=== PATIENT | female | born 1955 | race Caucasian/White ===

== ENCOUNTER 2023-02-02 14:05 | Inpatient (IN) | payer OTHER, MEDICARE ==
[2023-02-01 20:00] VITALS: PULSE 104; RESP 18; O2SAT 99
[~2023-02-02] VITALS: Ht 162.6 cm; Wt 109.9 kg
[2023-02-02 14:58] VITALS: PULSE 110; RESP 19; O2SAT 94
[2023-02-02] MEDS ORDERED: ONDANSETRON HCL 4 MG/2 ML VIAL IV ONE ×2 (15:00→19:00)
[2023-02-02] MEDS ORDERED: SODIUM CHLORIDE 0.9% 500 ML IV ONE (15:00)
[2023-02-02 15:07] LABS: Alanine Aminotransferase 16 U/L (7-40); Albumin 2.9 g/dL (3.2-4.8); Alkaline Phosphatase 77 U/L (46-116); Anion Gap 6 (5-15); Aspartate Aminotransferase 20 U/L (13-40); BUN/Creatinine Ratio 16.4 (10.0-20.0); Blood Urea Nitrogen 19 mg/dL (9-23); Calcium 7.9 mg/dL (8.7-10.4); Carbon Dioxide 26 mmol/L (20-30); Chloride 108 mmol/L (98-107); Glucose 163 mg/dL (74-106); Sodium 140 mmol/L (136-145)
[2023-02-02 15:08] LABS: Bilirubin, Total 0.8 mg/dL (0.2-1.0); Total Protein 5.4 g/dL (5.7-8.2)
[2023-02-02 15:44] LABS: Basophils # (auto) 0 10 ^3/uL (0-0.2); Eosinophils # (auto) 0 10 ^3/uL (0-0.8); Hemoglobin 7.9 g/dL (12.2-16.2); Lymphocytes # (auto) 0.3 10 ^3/uL (0.4-5.4); Mean Corpuscular Hgb Conc. 34.4 g/dL (32.0-36.0); Monocytes # (auto) 0 10 ^3/uL (0-1.3); Neutrophils # (auto) 0.1 10 ^3/uL (1.6-8.6); Red Blood Cells 2.53 10^6/uL (4.0-5.20)
[2023-02-02 15:46] LABS: Basophils % (auto) 0.1 % (0.0-2.0); Eosinophils % (auto) 6.3 % (0.0-7.0); Lymphocytes % (auto) 68.1 % (10.0-50.0); Mean Corpuscular Hemoglobin 31.1 pg (28.0-32.0); Mean Corpuscular Volume 90.7 fL (80.0-100.0); Monocytes % (auto) 1.6 % (0.0-12.0); Neutrophils % (auto) 23.9 % (37.0-80.0); Nucleated Red Blood Cells % 0.6 %; Red Cell Distribution Width 14.3 % (11.8-14.3)
[2023-02-02 15:55] LABS: Urine Bacteria NONE SEEN /hpf (None Seen); Urine Blood Negative /uL (Negative); Urine Clarity Clear (Clear); Urine Color Colorless (Yellow); Urine Mucus FEW (None Seen); Urine Protein, UAD Negative (Negative); Urine Specific Gravity 1.008 (1.001-1.035); Urine Urobilinogen Normal (Negative); Urine WBC 5 /hpf (0 - 5); Urine pH 5.5 (5.0-8.0)
[2023-02-02] MEDS ORDERED: cefTRIAXone 1GM/50ML D5W 50 ML IV ONE (16:15)
[2023-02-02] MEDS: POTASSIUM CHL 20 Meq TABLET PO ONE ×2 (16:29→16:34)
[2023-02-02 16:35] LABS: White Blood Cell 0.5 10^3/uL (4.4-10.8)
[2023-02-02 16:36] LABS: Alanine Aminotransferase 15 U/L (7-40); Albumin 2.8 g/dL (3.2-4.8); Alkaline Phosphatase 76 U/L (46-116); Anion Gap 5 (5-15); Aspartate Aminotransferase 20 U/L (13-40); BUN/Creatinine Ratio 15.2 (10.0-20.0); Blood Urea Nitrogen 17 mg/dL (9-23); Calcium 7.8 mg/dL (8.7-10.4); Carbon Dioxide 27 mmol/L (20-30); Chloride 109 mmol/L (98-107); Glucose 128 mg/dL (74-106); Lipase 60 U/L (12-53); Magnesium 1.4 mg/dL (1.6-2.6); Potassium 3.1 mmol/L (3.5-5.1); Sodium 141 mmol/L (136-145)
[2023-02-02 16:37] LABS: Bilirubin, Total 0.8 mg/dL (0.2-1.0); Total Protein 5.3 g/dL (5.7-8.2)
[2023-02-02 16:38] LABS: Lactic Acid w/Reflex 2.1 mmol/L (0.4-2.0)
[2023-02-02] MEDS ORDERED: VANCOMYCIN 1GM/250ML 250 ML IV ONE (17:15)
[2023-02-02 17:49] LABS: INR 1.1 (0.9-1.15); Partial Thromboplastin Time 29.2 SEC (24.5-34.5); Prothrombin Time 11.5 sec (9.3-11.8)
[2023-02-02] MEDS ORDERED: MORPHINE SULFATE 4 MG/ML SYR/VIAL IV ONE (19:00)
[2023-02-02 19:50] VITALS: PULSE 119; RESP 25; O2SAT 90
[2023-02-02] MEDS ORDERED: ACETAMINOPHEN 650 MG RECT SUPP PR ONE (20:30)
[2023-02-02] MEDS ORDERED: VANCOMYCIN PER PHARMACY 0 MG IV SCH (21:45)
[2023-02-02] MEDS ORDERED: SOD CHL 0.45% 1,000 ML IV ONE (21:45)
[2023-02-02] MEDS ORDERED: NITROGLYCERIN 0.4 MG SL TAB SL PRN (21:45)
[2023-02-02] MEDS: CALCIUM GLUC 1,000mg/50ml-NS 50 ML IV SCH ×2 (22:32→23:08)
[2023-02-02] MEDS: ONDANSETRON HCL 4 MG/2 ML VIAL IV PRN (23:33)
[2023-02-02] MEDS: PIPERACILLIN-TAZOB 3.375GM 100 ML IV SCH (23:50)
[2023-02-03] VITALS (11 sets, daily range): BP systolic 91–137; BP diastolic 29–61; PULSE 95–116; RESP 14–22; TEMP 97.6–101; O2SAT 91–100
[2023-02-03 03:07] LABS: Basophils # (auto) 0 10 ^3/uL (0-0.2); Basophils % (auto) 0.1 % (0.0-2.0); Eosinophils # (auto) 0 10 ^3/uL (0-0.8); Hemoglobin 7.2 g/dL (12.2-16.2); Lymphocytes # (auto) 0.3 10 ^3/uL (0.4-5.4); Monocytes # (auto) 0 10 ^3/uL (0-1.3); Neutrophils # (auto) 0.1 10 ^3/uL (1.6-8.6)
[2023-02-03 03:09] LABS: Eosinophils % (auto) 1.2 % (0.0-7.0); Hematocrit 20.9 % (36.0-46.0); Mean Corpuscular Hemoglobin 31.6 pg (28.0-32.0); Mean Corpuscular Hgb Conc. 34.4 g/dL (32.0-36.0); Mean Corpuscular Volume 91.7 fL (80.0-100.0); Neutrophils % (auto) 35.4 % (37.0-80.0); Nucleated Red Blood Cells % 0.8 %; Red Blood Cells 2.28 10^6/uL (4.0-5.20); Red Cell Distribution Width 14.5 % (11.8-14.3)
[2023-02-03 03:47] LABS: Lymphocytes % (auto) 60.3 % (10.0-50.0)
[2023-02-03 03:57] LABS: White Blood Cell 0.4 10^3/uL (4.4-10.8)
[2023-02-03 03:59] LABS: Platelet Estimate Markedly Decreased
[2023-02-03 05:08] LABS: Alanine Aminotransferase 13 U/L (7-40); Albumin 2.6 g/dL (3.2-4.8); Alkaline Phosphatase 64 U/L (46-116); Anion Gap 8 (5-15); Aspartate Aminotransferase 13 U/L (13-40); BUN/Creatinine Ratio 17.5 (10.0-20.0); Blood Urea Nitrogen 22 mg/dL (9-23); Calcium 7.7 mg/dL (8.7-10.4); Carbon Dioxide 25 mmol/L (20-30); Chloride 107 mmol/L (98-107); Glucose 148 mg/dL (74-106); Potassium 3.3 mmol/L (3.5-5.1); Sodium 140 mmol/L (136-145)
[2023-02-03 05:09] LABS: Bilirubin, Total 0.9 mg/dL (0.2-1.0); Total Protein 4.9 g/dL (5.7-8.2)
[2023-02-03] MEDS: PIPERACILLIN-TAZOB 3.375GM 100 ML IV SCH ×2 (06:49→14:12)
[2023-02-03] MEDS: MORPHINE SULFATE INJ 2 MG/ml SYRG IV PRN ×3 (08:13→19:14)
[2023-02-03] MEDS: ONDANSETRON HCL 4 MG/2 ML VIAL IV PRN ×3 (08:13→20:40)
[2023-02-03] MEDS ORDERED: ACETAMINOPHEN 500 MG TAB PO PRN (10:15)
[2023-02-03] MEDS ORDERED: HYDROcodone-ACET 5/325MG TAB PO PRN (15:15)
[2023-02-03] MEDS: metroNIDAZOLE 500MG/100ML 100 ML IV SCH (19:15)
[2023-02-03] MEDS: SOD CHL 0.45% WITH 20MEQ KCL 1,000 ML IV SCH (20:30)
[2023-02-04] VITALS (13 sets, daily range): BP systolic 109–116; BP diastolic 45–68; PULSE 61–124; RESP 16–21; TEMP 97.5–99.3; O2SAT 93–100
[2023-02-04] MEDS: SOD CHL 0.45% WITH 20MEQ KCL 1,000 ML IV SCH
[2023-02-04] MEDS: metroNIDAZOLE 500MG/100ML 100 ML IV SCH ×4 (00:10→22:41)
[2023-02-04] MEDS: MORPHINE SULFATE INJ 2 MG/ml SYRG IV PRN ×5 (00:11→20:20)
[2023-02-04] MEDS: ONDANSETRON HCL 4 MG/2 ML VIAL IV PRN ×2 (05:18→09:22)
[2023-02-04 07:06] LABS: Basophils # (auto) 0 10 ^3/uL (0-0.2); Eosinophils # (auto) 0 10 ^3/uL (0-0.8); Lymphocytes # (auto) 0.2 10 ^3/uL (0.4-5.4); Mean Corpuscular Volume 89.7 fL (80.0-100.0); Monocytes # (auto) 0 10 ^3/uL (0-1.3); Neutrophils # (auto) 0.2 10 ^3/uL (1.6-8.6)
[2023-02-04 07:09] LABS: Basophils % (auto) 0.1 % (0.0-2.0); Eosinophils % (auto) 2.1 % (0.0-7.0); Hematocrit 18.4 % (36.0-46.0); Mean Corpuscular Hemoglobin 31.6 pg (28.0-32.0); Mean Corpuscular Hgb Conc. 35.2 g/dL (32.0-36.0); Monocytes % (auto) 5.7 % (0.0-12.0); Neutrophils % (auto) 47.1 % (37.0-80.0); Nucleated Red Blood Cells % 2.6 %; Red Blood Cells 2.05 10^6/uL (4.0-5.20)
[2023-02-04 07:26] LABS: Hemoglobin 6.5 g/dL (12.2-16.2); White Blood Cell 0.4 10^3/uL (4.4-10.8)
[2023-02-04 07:43] LABS: Alanine Aminotransferase 11 U/L (7-40); Albumin 2.5 g/dL (3.2-4.8); Alkaline Phosphatase 57 U/L (46-116); Anion Gap 8 (5-15); Aspartate Aminotransferase 13 U/L (13-40); BUN/Creatinine Ratio 14.9 (10.0-20.0); Blood Urea Nitrogen 18 mg/dL (9-23); Calcium 7.6 mg/dL (8.5-10.1); Carbon Dioxide 28 mmol/L (20-30); Chloride 107 mmol/L (98-107); Glucose 143 mg/dL (74-106); Sodium 143 mmol/L (136-145)
[2023-02-04 07:44] LABS: Bilirubin, Total 0.7 mg/dL (0.2-1.0); Total Protein 4.8 g/dL (5.7-8.2)
[2023-02-04 07:51] LABS: Potassium 2.8 mmol/L (3.5-5.1)
[2023-02-04] MEDS ORDERED: FILGRASTIM (TBO) 300 MCG/0.5 ML SYRG SC ONE (08:00)
[2023-02-04 08:26] LABS: Platelet Estimate Decreased
[2023-02-04] MEDS: cefTRIAXone 1GM/50ML D5W 50 ML IV SCH (09:22)
[2023-02-04] MEDS ORDERED: LIDOCAINE VISCOUS 2% 15ML UD MT PRN (09:45)
[2023-02-04] MEDS ORDERED: POTASSIUM CHLORIDE 60 MEQ, LIDOCAINE 1% (LOCAL ANESTH.) 6 ML in SODIUM CHL 0.9% 500 ML IV ONE (09:45)
[2023-02-04] MEDS: POTASSIUM CHLORIDE 40 MEQ in SOD CHL 0.45% 1,000 ML IV SCH ×2 (09:45→23:26)
[2023-02-04] MEDS ORDERED: VANCOMYCIN 1,250 MG in D5W 5% 250 ML IV SCH (17:00)
[2023-02-04] MEDS: NYSTATIN (MOUTH-THROAT) 500,000 UNITS/5 ML SUSP MT SCH ×2 (22:00→22:41)
[2023-02-04] MEDS: VANCOMYCIN HCL 125MG/5ML ORAL SOL PO SCH (22:00)
[2023-02-05] VITALS (9 sets, daily range): BP systolic 99–137; BP diastolic 50–67; PULSE 90–139; RESP 17–22; TEMP 98–100.3; O2SAT 91–100
[2023-02-05] MEDS: MORPHINE SULFATE INJ 2 MG/ml SYRG IV PRN ×4 (03:04→17:51)
[2023-02-05] MEDS: ONDANSETRON HCL 4 MG/2 ML VIAL IV PRN ×2 (03:21→09:55)
[2023-02-05] MEDS: NYSTATIN (MOUTH-THROAT) 500,000 UNITS/5 ML SUSP MT SCH ×5 (06:00→22:00)
[2023-02-05] MEDS: VANCOMYCIN HCL 125MG/5ML ORAL SOL PO SCH ×4 (06:00→22:00)
[2023-02-05] MEDS: POTASSIUM CHLORIDE 40 MEQ in SOD CHL 0.45% 1,000 ML IV SCH ×2 (06:09→16:21)
[2023-02-05] MEDS: metroNIDAZOLE 500MG/100ML 100 ML IV SCH ×3 (06:28→21:57)
[2023-02-05 07:14] LABS: Basophils # (auto) 0 10 ^3/uL (0-0.2); Eosinophils # (auto) 0 10 ^3/uL (0-0.8); Hemoglobin 7.2 g/dL (12.2-16.2); Lymphocytes # (auto) 0.2 10 ^3/uL (0.4-5.4)
[2023-02-05 07:16] LABS: Basophils % (auto) 0.4 % (0.0-2.0); Eosinophils % (auto) 0.2 % (0.0-7.0); Hematocrit 20.7 % (36.0-46.0); Lymphocytes % (auto) 34.3 % (10.0-50.0); Mean Corpuscular Hemoglobin 31.3 pg (28.0-32.0); Mean Corpuscular Hgb Conc. 34.7 g/dL (32.0-36.0); Mean Corpuscular Volume 90.2 fL (80.0-100.0); Monocytes # (auto) 0.1 10 ^3/uL (0-1.3); Monocytes % (auto) 11.8 % (0.0-12.0); Neutrophils # (auto) 0.2 10 ^3/uL (1.6-8.6); Neutrophils % (auto) 53.3 % (37.0-80.0); Nucleated Red Blood Cells % 1.9 %; Red Cell Distribution Width 14.7 % (11.8-14.3)
[2023-02-05 07:32] LABS: Alanine Aminotransferase 14 U/L (7-40); Albumin 2.5 g/dL (3.2-4.8); Alkaline Phosphatase 65 U/L (46-116); Anion Gap 7 (5-15); Aspartate Aminotransferase 15 U/L (13-40); Bilirubin, Total 1.1 mg/dL (0.2-1.0); Blood Urea Nitrogen 12 mg/dL (9-23); Calcium 7.4 mg/dL (8.5-10.1); Carbon Dioxide 26 mmol/L (20-30); Chloride 108 mmol/L (98-107); Glucose 112 mg/dL (74-106); Sodium 141 mmol/L (136-145); Total Protein 4.8 g/dL (5.7-8.2)
[2023-02-05 07:35] LABS: Potassium 2.9 mmol/L (3.5-5.1)
[2023-02-05 07:41] LABS: White Blood Cell 0.5 10^3/uL (4.4-10.8)
[2023-02-05 07:43] LABS: Platelet Estimate Markedly Decreased
[2023-02-05] MEDS ORDERED: POTASSIUM CHLORIDE 60 MEQ, LIDOCAINE 1% (LOCAL ANESTH.) 6 ML in SODIUM CHL 0.9% 500 ML IV ONE (08:45)
[2023-02-05] MEDS ORDERED: LACTATED RINGER'S 1,000 ML IV ONE (08:45)
[2023-02-05] MEDS: CHOLESTYRAMINE 4 GM POWDER PO SCH (09:35)
[2023-02-05] MEDS: cefTRIAXone 1GM/50ML D5W 50 ML IV SCH (09:36)
[2023-02-05] MEDS: PANTOPRAZOLE 40 MG/10 ML VIAL INJ IV SCH (09:36)
[2023-02-05] MEDS: Ensure Enlive Strawberry 8oz Bottle PO SCH ×2 (12:00→17:37)
[2023-02-05] MEDS ORDERED: FILGRASTIM(TBO) 480 MCG/0.8 ML SYRG SC SCH (15:30)
[2023-02-05] MEDS ORDERED: MORPHINE SULFATE INJ 2 MG/ml SYRG IV PRN (15:30)
[2023-02-05] MEDS ORDERED: FILGRASTIM(TBO) 480 MCG/0.8 ML SYRG SC ONE (17:00)
[2023-02-05] MEDS ORDERED: ACETAMINOPHEN 650 MG RECT SUPP PR ONE (23:15)
[2023-02-05] MEDS ORDERED: CLINIMIX PER PHARMACY 0 ML IV SCH ×2 (23:30→23:45)
[2023-02-06] VITALS (20 sets, daily range): BP systolic 95–145; BP diastolic 52–80; PULSE 73–132; RESP 20–28; TEMP 98.5–99.9; O2SAT 88–100
[2023-02-06] MEDS ORDERED: SODIUM CHLORIDE 0.9% 1,000 ML IV ONE (02:30)
[2023-02-06] MEDS ORDERED: HYDROcodone-ACET 5/325MG TAB PO ONE (02:30)
[2023-02-06] MEDS: POTASSIUM CHLORIDE 40 MEQ in SOD CHL 0.45% 1,000 ML IV SCH (02:33)
[2023-02-06] MEDS: IPRATROPIUM BROM 0.5 MG/2.5ML INH SOL NEB PRN ×3 (02:56→10:05)
[2023-02-06] MEDS: ALBUTEROL SULF 2.5 MG/0.5ML(0.5%) NEB SOLN NEB PRN ×3 (02:56→10:05)
[2023-02-06] MEDS: metroNIDAZOLE 500MG/100ML 100 ML IV SCH ×3 (05:13→22:00)
[2023-02-06] MEDS: VANCOMYCIN HCL 125MG/5ML ORAL SOL PO SCH ×4 (05:36→22:00)
[2023-02-06] MEDS: NYSTATIN (MOUTH-THROAT) 500,000 UNITS/5 ML SUSP MT SCH ×8 (05:45→22:00)
[2023-02-06] MEDS ORDERED: ALBUMIN 5% 250 ML IV ONE (06:30)
[2023-02-06 09:05] LABS: Basophils # (auto) 0 10 ^3/uL (0-0.2); Basophils % (auto) 0.4 % (0.0-2.0); Eosinophils # (auto) 0 10 ^3/uL (0-0.8); Eosinophils % (auto) 0.3 % (0.0-7.0); Lymphocytes # (auto) 0.1 10 ^3/uL (0.4-5.4); Lymphocytes % (auto) 23.1 % (10.0-50.0); Mean Corpuscular Hemoglobin 31.2 pg (28.0-32.0); Mean Corpuscular Hgb Conc. 34.4 g/dL (32.0-36.0); Mean Corpuscular Volume 90.9 fL (80.0-100.0); Monocytes # (auto) 0 10 ^3/uL (0-1.3); Monocytes % (auto) 11.1 % (0.0-12.0); Neutrophils # (auto) 0.3 10 ^3/uL (1.6-8.6); Neutrophils % (auto) 65.1 % (37.0-80.0); Red Blood Cells 2.09 10^6/uL (4.0-5.20); Red Cell Distribution Width 14.5 % (11.8-14.3)
[2023-02-06 09:12] LABS: White Blood Cell 0.4 10^3/uL (4.4-10.8)
[2023-02-06 09:13] LABS: Hemoglobin 6.5 g/dL (12.2-16.2); Phosphorus 3.4 mg/dL (2.4-5.1)
[2023-02-06 09:14] LABS: Alanine Aminotransferase 10 U/L (7-40); Albumin 2.4 g/dL (3.2-4.8); Alkaline Phosphatase 55 U/L (46-116); Anion Gap 10 (5-15); Aspartate Aminotransferase 18 U/L (13-40); BUN/Creatinine Ratio 11.2 (10.0-20.0); Bilirubin, Total 0.7 mg/dL (0.2-1.0); Blood Urea Nitrogen 12 mg/dL (9-23); Calcium 6.9 mg/dL (8.5-10.1); Carbon Dioxide 23 mmol/L (20-30); Chloride 107 mmol/L (98-107); Glucose 112 mg/dL (74-106); Potassium 3.4 mmol/L (3.5-5.1); Sodium 140 mmol/L (136-145); Total Protein 4.6 g/dL (5.7-8.2)
[2023-02-06] MEDS ORDERED: DEXTROSE (50%) 50ML SYRG IV SCH (09:45)
[2023-02-06 09:47] LABS: Platelet Estimate Markedly Decreased
[2023-02-06 10:00] LABS: Magnesium 1.2 mg/dL (1.6-2.6)
[2023-02-06] MEDS ORDERED: FILGRASTIM(TBO) 480 MCG/0.8 ML SYRG SC SCH ×2 (10:00)
[2023-02-06] MEDS ORDERED: MAGNESIUM SULFATE 1GM/100ML 100 ML IV SCH (11:00)
[2023-02-06] MEDS: CHOLESTYRAMINE 4 GM POWDER PO SCH (11:00)
[2023-02-06] MEDS: cefTRIAXone 1GM/50ML D5W 50 ML IV SCH (11:17)
[2023-02-06] MEDS: PANTOPRAZOLE 40 MG/10 ML VIAL INJ IV SCH (11:17)
[2023-02-06] MEDS: Ensure Enlive Strawberry 8oz Bottle PO SCH ×3 (11:17→18:00)
[2023-02-06] MEDS: MAGNESIUM SULFATE 1GM/100ML 100 ML IV SCH ×2 (11:23→12:00)
[2023-02-06] MEDS: InsuLIN REG 1unit/0.01ml Soln (100units/ml) SC SCH ×2 (12:00→18:00)
[2023-02-06] MEDS: MORPHINE SULFATE INJ 2 MG/ml SYRG IV PRN ×2 (14:00→17:44)
[2023-02-06] MEDS: ONDANSETRON HCL 4 MG/2 ML VIAL IV PRN ×2 (14:12→17:43)
[2023-02-06] MEDS ORDERED: POTASSIUM CHLORIDE 40 MEQ in SOD CHL 0.45% 1,000 ML IV SCH (16:00)
[2023-02-06] MEDS: ACCU-CHEK COMFORT CURVE STRIP VI SCH ×2 (17:42→18:20)
[2023-02-06] MEDS: IPRATROPIUM BROM 0.5 MG/2.5ML INH SOL NEB SCH ×2 (18:38→23:18)
[2023-02-06] MEDS: ALBUTEROL SULF 2.5 MG/0.5ML(0.5%) NEB SOLN NEB SCH ×2 (18:38→23:17)
[2023-02-06] MEDS ORDERED: AMINO ACID INFUSION IN D10W 1,000 ML IV NR (20:00)
[2023-02-06] MEDS ORDERED: ACETAMINOPHEN 650 MG RECT SUPP PR PRN (20:30)
[2023-02-07] VITALS (11 sets, daily range): BP systolic 86–156; BP diastolic 33–112; PULSE 100–125; RESP 14–24; TEMP 97.4–98.7; O2SAT 95–100
[2023-02-07] MEDS: ACCU-CHEK COMFORT CURVE STRIP VI SCH ×2 (00:37→06:32)
[2023-02-07] MEDS ORDERED: ALBUMIN 25% 250 ML IV ONE (02:15)
[2023-02-07] MEDS: NYSTATIN (MOUTH-THROAT) 500,000 UNITS/5 ML SUSP MT SCH ×4 (06:00→18:00)
[2023-02-07] MEDS: VANCOMYCIN HCL 125MG/5ML ORAL SOL PO SCH ×3 (06:00→18:00)
[2023-02-07] MEDS: InsuLIN REG 1unit/0.01ml Soln (100units/ml) SC SCH ×2 (06:00)
[2023-02-07] MEDS: metroNIDAZOLE 500MG/100ML 100 ML IV SCH (06:40)
[2023-02-07] MEDS: IPRATROPIUM BROM 0.5 MG/2.5ML INH SOL NEB SCH (06:45)
[2023-02-07] MEDS: ALBUTEROL SULF 2.5 MG/0.5ML(0.5%) NEB SOLN NEB SCH ×3 (06:45→18:00)
[2023-02-07 07:13] LABS: Alanine Aminotransferase 11 U/L (7-40); Albumin 3.1 g/dL (3.2-4.8); Alkaline Phosphatase 53 U/L (46-116); Anion Gap 11 (5-15); Aspartate Aminotransferase 30 U/L (13-40); BUN/Creatinine Ratio 11.4 (10.0-20.0); Blood Urea Nitrogen 19 mg/dL (9-23); Carbon Dioxide 22 mmol/L (20-30); Chloride 104 mmol/L (98-107); Glucose 123 mg/dL (74-106); Potassium 3.4 mmol/L (3.5-5.1); Sodium 137 mmol/L (136-145); Total Protein 4.9 g/dL (5.7-8.2)
[2023-02-07 07:22] LABS: Basophils # (auto) 0 10 ^3/uL (0-0.2); Eosinophils # (auto) 0 10 ^3/uL (0-0.8); Lymphocytes # (auto) 0.1 10 ^3/uL (0.4-5.4); Monocytes # (auto) 0 10 ^3/uL (0-1.3)
[2023-02-07 07:24] LABS: Basophils % (auto) 0.4 % (0.0-2.0); Hematocrit 20.5 % (36.0-46.0); Lymphocytes % (auto) 23.6 % (10.0-50.0); Mean Corpuscular Hemoglobin 31.8 pg (28.0-32.0); Mean Corpuscular Hgb Conc. 34.3 g/dL (32.0-36.0); Mean Corpuscular Volume 92.7 fL (80.0-100.0); Monocytes % (auto) 5.7 % (0.0-12.0); Neutrophils # (auto) 0.4 10 ^3/uL (1.6-8.6); Neutrophils % (auto) 69.3 % (37.0-80.0); Red Blood Cells 2.21 10^6/uL (4.0-5.20); Red Cell Distribution Width 14.7 % (11.8-14.3)
[2023-02-07 07:54] LABS: Nucleated Red Blood Cells % 3.1 %
[2023-02-07 07:58] LABS: White Blood Cell 0.6 10^3/uL (4.4-10.8)
[2023-02-07 08:00] LABS: Platelet Estimate Markedly Decreased
[2023-02-07] MEDS: Ensure Enlive Strawberry 8oz Bottle PO SCH ×3 (08:00→18:00)
[2023-02-07] MEDS: cefTRIAXone 1GM/50ML D5W 50 ML IV SCH (08:51)
[2023-02-07] MEDS ORDERED: POTASSIUM CHLORIDE 40 MEQ in SOD CHL 0.45% 1,000 ML IV SCH (09:30)
[2023-02-07] MEDS: ONDANSETRON HCL 4 MG/2 ML VIAL IV PRN (10:08)
[2023-02-07] MEDS: PANTOPRAZOLE 40 MG/10 ML VIAL INJ IV SCH (10:08)
[2023-02-07] MEDS: MORPHINE SULFATE INJ 2 MG/ml SYRG IV PRN ×2 (14:00→19:46)
[2023-02-07] MEDS ORDERED: CALCIUM GLUC 1,000mg/50ml-NS 50 ML IV ONE (15:45)
[2023-02-07 16:07] LABS: Magnesium 1.4 mg/dL (1.6-2.6)
[2023-02-07 16:09] LABS: Phosphorus 4.7 mg/dL (2.4-5.1)
[2023-02-07] MEDS ORDERED: LORazepam 2MG/ML-1ML VIAL IV PRN (16:45)
[2023-02-07] MEDS ORDERED: POTASSIUM CHL 20MEQ/100ML 100 ML IV ONE (17:30)
[2023-02-07] MEDS: MAGNESIUM SULFATE 1GM/100ML 100 ML IV SCH ×2 (18:00→19:00)
[2023-02-07] MEDS ORDERED: InsuLIN REG 1unit/0.01ml Soln (100units/ml) SC SCH (18:00)
[2023-02-07] MEDS ORDERED: ACCU-CHEK COMFORT CURVE STRIP VI SCH (18:00)
[2023-02-07] MEDS ORDERED: DEXTROSE (50%) 50ML SYRG IV SCH (18:00)
== END 2023-02-07 21:23 | DRG 871 ==
LOC: EDBD 14:05 → ER 14:05 → TELE-WESTW 21:33 → OBSVTOIN 21:39 → UNDOADMOB 21:39 → INTOOBSV 21:39 → TELE 21:39 → TELE-WESTW 02-03 09:22
PROVIDERS: ADMIT Internal Medicine; ATTEND Nurse Practitioner Acute Care
PROC: 30233N1 Transfusion of Nonautologous Red Blood Cells into Peripheral Vein, Percutaneous Approach (ICD-10-PCS; 2023-02-03)
PROC: 30233R1 Transfusion of Nonautologous Platelets into Peripheral Vein, Percutaneous Approach (ICD-10-PCS; principal; 2023-02-04)
DX: A41.9 Sepsis, unspecified organism (principal); D61.810 Antineoplastic chemotherapy induced pancytopenia; E43 Unspecified severe protein-calorie malnutrition; N17.0 Acute kidney failure with tubular necrosis; A04.72 Enterocolitis due to Clostridium difficile, not specified as recurrent; C34.90 Malignant neoplasm of unspecified part of unspecified bronchus or lung; K51.90 Ulcerative colitis, unspecified, without complications; B37.0 Candidal stomatitis; Z68.43 Body mass index [BMI] 50.0-59.9, adult; R50.81 Fever presenting with conditions classified elsewhere; K21.9 Gastro-esophageal reflux disease without esophagitis; T45.1X5A Adverse effect of antineoplastic and immunosuppressive drugs, initial encounter; Z66 Do not resuscitate; Y92.89 Other specified places as the place of occurrence of the external cause; E66.9 Obesity, unspecified; F17.210 Nicotine dependence, cigarettes, uncomplicated; I10 Essential (primary) hypertension; K12.30 Oral mucositis (ulcerative), unspecified; N30.90 Cystitis, unspecified without hematuria; Z51.5 Encounter for palliative care; Z85.118 Personal history of other malignant neoplasm of bronchus and lung; Z90.2 Acquired absence of lung [part of]; Z90.49 Acquired absence of other specified parts of digestive tract
CPT/HCPCS: 36415; 71045; 74176; 80053; 81001; 82962; 83605; 83690; 83735; 84100; 84478; 84484; 85025; 85610; 85730; 86850; 86900; 86901; 86920; 87040; 87045; 87086; 87427; 87493; 94640; 96361; 96365; 96367; 96375; 96376; 97110; 97163; C9113; G0378; J0696; J1447; J2001; J2405; J2543; J3490; J7060; P9047